=== PATIENT | female | born 1960 | race Caucasian/White ===

== ENCOUNTER 2018-02-01 15:13 | Day surgery (SDC) | payer BC, SELFPAY ==
[~2018-02-01 15:13] MED LIST: Ketorolac Tromethamine 30 MG/ML VIAL ONE; Lidocaine 1% PF 5 ML VIAL ONE; PROPOFOL 200 MG/20 ML VIAL ONE
[2018-02-01 16:13] LABS: #Basophils 0.1 thou/uL (0.0-0.2); #Eosinphils 0.1 thou/uL (0.0-0.7); #Lymphocytes 1.5 thou/uL (1.20-3.40); #Monocytes 0.5 thou/uL (0.11-0.59); #Neutrophils 3.8 thou/uL (1.40-6.50); %Basophils 1.1 % (0.0-1.0); %Eosinophils 1.8 % (0.0-10.0); %Lymphocytes 25.5 % (21.0-51.0); %Monocytes 8.2 % (0.0-10.0); %Neutrophils 63.5 % (42.0-75.0); Hemoglobin 14.5 g/dL (12.0-16.0); Mean Corpuscular HGB CONC 32.3 g/dL (32.0-36.0); Mean Corpuscular Hemoglobin 28.5 pg (27.0-31.0); Mean Corpuscular Volume 88.2 fl (81.0-99.0); Mean Platelet Volume 7.6 fL (7.4-10.4); Platelet Count 296 thou/uL (130-400); RBC Distribution Width 12.8 % (11.5-14.5)
[2018-02-01] MEDS ORDERED: Levofloxacin 500 mg/D5W 100 ml Premix Bag ONE (16:35)
[2018-02-01] MEDS ORDERED: Clindamycin/D5W 600 mg/50 ml Premix Bag ONE (16:36)
[2018-02-01] MEDS ORDERED: Bupivacaine PF 0.5% 30 ML VIAL ONE (17:35)
[2018-02-01] MEDS ORDERED: Sodium Chloride 0.9% 10 ML ONE (17:35)
[2018-02-01] MEDS ORDERED: Bacitracin Zinc Ointment 30 gm TUBE ONE (17:36)
[2018-02-01] MEDS ORDERED: Fentanyl 100 MCG/2 ML VIAL ONE ×2 (17:46→18:33)
[2018-02-01] MEDS ORDERED: Ketorolac Tromethamine 30 MG/ML VIAL ONE (19:11)
[2018-02-01] MEDS ORDERED: Ondansetron HCl/PF 4 MG/2 ML Vial ONE (19:25)
--- NOTE | 2018-02-02 13:56 | OP ---
DATE OF SURGERY: 02/01/2018 PREOPERATIVE DIAGNOSIS: Right index finger abscess with extensor tenosynovitis. POSTOPERATIVE DIAGNOSIS: Right index finger abscess with extensor tenosynovitis. PROCEDURE PERFORMED: Incision and drainage of abscess, right index finger mucopurulence found without gross pus formation. TOURNIQUET TIME: 10 minutes. BLOOD LOSS: 10 mL FINDINGS: Gross purulence, dorsal aspect of index finger. DESCRIPTION OF PROCEDURE: After successful general LMA technique by [employer], the limb wa s prepped and draped. Timeout was done appropriately and matched the site, side, and procedure. We then looked at the index finger, made a longitudinal zigzag incision along the appropriate right inde x finger spot where the fluctuance was seen, debrided, irrigated with 3 liters normal saline and Puls avac pressure and prepared for a bulky dressing application after we completely make sure no denuded of tissue was passed on. The patient then left the operating room without evidence of anestheti c or operative complication.
== END 2018-02-01 20:34 | disposition home or self-care (01) ==
LOC: SDC 15:13
PROVIDERS: ATTEND Orthopaedic Surgery Hand Surgery
PROC: 0H9FXZZ Drainage of Right Hand Skin, External Approach (ICD-10-PCS; principal; 2018-02-01)
DX: T63.331A Toxic effect of venom of brown recluse spider, accidental (unintentional), initial encounter (principal); L02.511 Cutaneous abscess of right hand; M65.841 Other synovitis and tenosynovitis, right hand; I10 Essential (primary) hypertension; F32.9 Major depressive disorder, single episode, unspecified; Z79.899 Other long term (current) drug therapy; Z88.5 Allergy status to narcotic agent
CPT/HCPCS: 36415; 85025; 87070; 87077; 87186; 87205; 96374; 96375; A4216; J1885; J1956; J2001; J2405; J2704; J3010; J3490; S0020

== ENCOUNTER 2018-02-15 13:09 | Outpatient (CLI) | payer SELFPAY ==
[2018-02-15 15:25] LABS: #Basophils 0.1 thou/uL (0.0-0.2); #Eosinphils 0.1 thou/uL (0.0-0.7); #Lymphocytes 1.5 thou/uL (1.20-3.40); #Monocytes 0.6 thou/uL (0.11-0.59); #Neutrophils 4.2 thou/uL (1.40-6.50); %Basophils 1.1 % (0.0-1.0); %Eosinophils 1.4 % (0.0-10.0); %Lymphocytes 23.4 % (21.0-51.0); %Monocytes 9.3 % (0.0-10.0); %Neutrophils 64.8 % (42.0-75.0); Hemoglobin 13.9 g/dL (12.0-16.0); Mean Corpuscular HGB CONC 32.7 g/dL (32.0-36.0); Mean Corpuscular Hemoglobin 28.5 pg (27.0-31.0); Mean Corpuscular Volume 87.3 fl (81.0-99.0); Mean Platelet Volume 8.7 fL (7.4-10.4); Platelet Count 240 thou/uL (130-400); RBC Distribution Width 12.7 % (11.5-14.5); Red Blood Cell (RBC) Count 4.88 mill/uL (4.20-5.40); White Blood Cell (WBC) Count 6.5 thou/uL (4.8-10.8)
[2018-02-15 15:43] LABS: Anion Gap 15 mmol/L (10-20); BUN (Urea Nitrogen) 25 mg/dL (9.8-20.1); Calc. Creatinine Clearance 0 mL/min (70-130); Calcium 9.2 mg/dL (7.8-10.44); Carbon Dioxide 20 mmol/L (22-29); Chloride 108 mmol/L (98-107); Estimated GFR-MDRD 89; Glucose 84 mg/dL (70-105); Potassium 4.1 mmol/L (3.5-5.1); Sodium 139 mmol/L (136-145)
== END 2018-02-15 13:10 | disposition home or self-care (01) ==
LOC: LABBT 13:09
PROVIDERS: ATTEND Orthopaedic Surgery Hand Surgery
DX: Z01.812 Encounter for preprocedural laboratory examination (principal); S61.200A Unspecified open wound of right index finger without damage to nail, initial encounter
CPT/HCPCS: 80048; 85025; 93005; 93010

== ENCOUNTER 2018-02-16 09:21 | Day surgery (SDC) | payer SELFPAY ==
[2018-02-15 13:50] VITALS: BMI 31.9
[2018-02-16] MEDS ORDERED: Fentanyl 100 MCG/2 ML VIAL ONE (13:06)
[2018-02-16] MEDS ORDERED: Bacitracin Zinc Ointment 30 gm TUBE ONE (13:10)
[2018-02-16] MEDS ORDERED: Thrombin 5000 UNITS/5 ML VIAL ONE (13:10)
[2018-02-16] MEDS ORDERED: Sodium Chloride 0.9% 10 ML ONE (13:23)
[2018-02-16] MEDS ORDERED: Bupivacaine HCl 0.5%/Epinephrine 1:200,000/PF 30 ml Vial ONE (14:21)
[2018-02-16] MEDS ORDERED: Ketorolac Tromethamine 30 MG/ML VIAL ONE ×2 (15:31→16:01)
[2018-02-16] MEDS ORDERED: Dexamethasone 20 MG/5 ML VIAL ONE (16:01)
[2018-02-16] MEDS ORDERED: Ondansetron HCl/PF 4 MG/2 ML Vial ONE (16:01)
[2018-02-16] MEDS ORDERED: PROPOFOL 200 MG/20 ML VIAL ONE (16:01)
[2018-02-16] MEDS ORDERED: Lidocaine 1% PF 5 ML VIAL ONE (16:01)
[2018-02-16] MEDS ORDERED: diphenhydrAMINE 50 MG/ML VIAL ONE (16:01)
--- NOTE | 2018-02-17 12:48 | OP ---
DATE OF PROCEDURE: 02/16/2018 PREOPERATIVE DIAGNOSIS: Right index finger, open wound, total of 4 cm. PROCEDURES PERFORMED: 1. Debridement of open wound, [id number] level. 2. Closure of wound 2 cm. 3. Full-thickness skin graft 2 cm total size with the defect closed primarily. SPECIMEN REMOVED: None. TOURNIQUET: None. ESTIMATED BLOOD LOSS: 10 mL. FINDINGS: Nonhealing wound with desquamation. DESCRIPTION OF PROCEDURE: After successful general LMA technique, the limb was prepped and draped. We then evaluated the wounds after doing a timeout appropriate, but they were visibly seen and were s eparated with sharp dissection using Mulligan. We were able to undermine most of the proximal phalan x wound but the middle phalanx wound we could not reapproximate [id number]. We finished the reappr oximation format using a 2 x 1 cm full-thickness skin graft harvested ipsilateral antecubital f tru, we were able to do a skin graft of both defects including the partial defect and a complete def ect at the proximal and middle phalanx respectively. The donor site was closed with a running 4-0 Mo nocryl with 4-0 nylon horizontal mattress incision. The 2 cm of wound that could be closed on the fi nger was closed in the same stitch. The patient then had graft bolstered with mineral oil soaked cot ton ball over bacitracin, Adaptic with 4-0 nylon after it had been secured with a running chromic 4-0 . The patient left the operating room in a bulky dressing after finishing the closure of the donor s ite wound and no evidence of anesthetic or operative complication.
== END 2018-02-16 16:45 | disposition home or self-care (01) ==
LOC: SDC 09:21
PROVIDERS: ATTEND Orthopaedic Surgery Hand Surgery
PROC: 0HRFX73 Replacement of Right Hand Skin with Autologous Tissue Substitute, Full Thickness, External Approach (ICD-10-PCS; principal; 2018-02-16)
DX: T63.301A Toxic effect of unspecified spider venom, accidental (unintentional), initial encounter (principal); I10 Essential (primary) hypertension; F32.9 Major depressive disorder, single episode, unspecified; Z79.899 Other long term (current) drug therapy; Z88.5 Allergy status to narcotic agent; Z79.2 Long term (current) use of antibiotics
CPT/HCPCS: 96372; A4216; J0131; J0670; J1100; J1200; J1885; J2001; J2405; J2704; J3010; J3370; J3490

== ENCOUNTER 2018-07-07 14:38 | Emergency (ER) | payer SELFPAY ==
[2018-07-07 16:02] LABS: #Basophils 0.1 thou/uL (0.0-0.2); #Eosinphils 0.3 thou/uL (0.0-0.7); #Lymphocytes 1.5 thou/uL (1.20-3.40); #Monocytes 0.9 thou/uL (0.11-0.59); #Neutrophils 4.7 thou/uL (1.40-6.50); %Basophils 1.3 % (0.0-1.0); %Eosinophils 4.5 % (0.0-10.0); %Monocytes 11.4 % (0.0-10.0); %Neutrophils 62.9 % (42.0-75.0); Hemoglobin 13.2 g/dL (12.0-16.0); Mean Corpuscular HGB CONC 31.8 g/dL (32.0-36.0); Mean Corpuscular Hemoglobin 27.6 pg (27.0-31.0); Mean Corpuscular Volume 86.8 fL (78.0-98.0); Mean Platelet Volume 8.5 fL (7.4-10.4); Platelet Count 284 thou/uL (130-400); RBC Distribution Width 12.6 % (11.5-14.5); Red Blood Cell (RBC) Count 4.78 mill/uL (4.20-5.40); White Blood Cell (WBC) Count 7.5 thou/uL (4.8-10.8)
[2018-07-07 16:20] LABS: ALT (SGPT) 14 U/L (8-55); AST (SGOT) 15 U/L (5-34); Albumin 3.7 g/dL (3.5-5.0); Alkaline Phosphatase 65 U/L (40-150); Anion Gap 12 mmol/L (10-20); BUN (Urea Nitrogen) 25 mg/dL (9.8-20.1); Bilirubin, Total 0.2 mg/dL (0.2-1.2); Calc. Creatinine Clearance 0 mL/min (70-130); Calcium 9.3 mg/dL (7.8-10.44); Carbon Dioxide 25 mmol/L (22-29); Chloride 107 mmol/L (98-107); Estimated GFR-MDRD 89; Globulin 3.3 g/dL (2.4-3.5); Glucose 91 mg/dL (70-105); Potassium 3.8 mmol/L (3.5-5.1); Sodium 140 mmol/L (136-145)
[2018-07-07 16:25] LABS: CKMB 1.3 ng/mL (0-6.6); Troponin I Less than 0.010 ng/mL (< 0.028)
--- NOTE | 2018-07-07 17:23 | CT ---
HEAD CT WITHOUT CONTRAST: 07/07/18 COMPARISON: None. HISTORY: Fall, trauma, pain. TECHNIQUE: Serial axial CT imaging at 5 mm intervals from vertex through skull base without contrast. FINDINGS: The visualized paranasal sinuses and mastoid air cells are well aerated. There is no displaced calvarial fracture. No intracranial hemorrhage, midline shift, mass effect, or ventricular enlargement. IMPRESSION: No acute findings. POS: [facility]
--- NOTE | 2018-07-07 17:24 | CT ---
CT CERVICAL SPINE WITHOUT CONTRAST: 07/07/18 INDICATION: History of fall with neck pain. COMPARISON: None. FINDINGS: No acute fracture or subluxation is evident. Spinal alignment is preserved. Osseous central canal alejandro ears within normal limits. Prevertebral soft tissues are normal appearing. The lung apices are clear. IMPRESSION: No acute osseous abnormality. POS: [facility]
== END 2018-07-07 17:38 | disposition left against medical advice (07) ==
LOC: ERS 14:38
DX: R55 Syncope and collapse (principal); E11.9 Type 2 diabetes mellitus without complications; K21.9 Gastro-esophageal reflux disease without esophagitis; I10 Essential (primary) hypertension; F32.9 Major depressive disorder, single episode, unspecified; W19.XXXA Unspecified fall, initial encounter
CPT/HCPCS: 36415; 70450; 72125; 80053; 82553; 84484; 85025; 93005

== ENCOUNTER 2020-12-31 16:27 | Emergency (ER) | payer BC, SELFPAY ==
[2020-12-31 20:35] LABS: #Basophils 0.1 thou/uL (0.0-0.2); #Eosinphils 0.1 thou/uL (0.0-0.7); #Lymphocytes 2.3 thou/uL (1.20-3.40); #Monocytes 0.6 thou/uL (0.11-0.59); #Neutrophils 3.5 thou/uL (1.40-6.50); %Basophils 0.9 % (0.0-1.0); %Eosinophils 1.9 % (0.0-10.0); %Lymphocytes 35.2 % (21.0-51.0); %Monocytes 9.1 % (0.0-10.0); %Neutrophils 52.8 % (42.0-75.0); Hemoglobin 14.7 g/dL (12.0-16.0); Mean Corpuscular HGB CONC 32.7 g/dL (32.0-36.0); Mean Corpuscular Hemoglobin 29.5 pg (27.0-31.0); Mean Corpuscular Volume 90.2 fL (78.0-98.0); Mean Platelet Volume 8.8 fL (7.4-10.4); Platelet Count 220 thou/uL (130-400); RBC Distribution Width 11.7 % (11.5-14.5); White Blood Cell (WBC) Count 6.5 thou/uL (4.8-10.8)
[2020-12-31 21:00] LABS: ALT (SGPT) 30 U/L (8-55); AST (SGOT) 27 U/L (5-34); Albumin 4.2 g/dL (3.5-5.0); Alkaline Phosphatase 67 U/L (40-110); Anion Gap 14 mmol/L (10-20); BUN (Urea Nitrogen) 30 mg/dL (9.8-20.1); Bilirubin, Total 0.3 mg/dL (0.2-1.2); Calc. Creatinine Clearance 0 mL/min (70-130); Calcium 9.5 mg/dL (7.8-10.44); Carbon Dioxide 23 mmol/L (22-29); Chloride 106 mmol/L (98-107); Globulin 3.5 g/dL (2.4-3.5); Glucose 81 mg/dL (70-105); Potassium 3.9 mmol/L (3.5-5.1); Protein, Total 7.7 g/dL (6.0-8.3); Sodium 139 mmol/L (136-145)
== END 2020-12-31 21:39 | disposition home or self-care (01) ==
LOC: ERS 16:27
DX: I83.93 Asymptomatic varicose veins of bilateral lower extremities (principal); E11.9 Type 2 diabetes mellitus without complications; K21.9 Gastro-esophageal reflux disease without esophagitis; I10 Essential (primary) hypertension
CPT/HCPCS: 36415; 80053; 85025; 85379